=== PATIENT | male | born 1965 | race African-American/Black ===

== ENCOUNTER 2022-02-09 21:12 | Inpatient (IN) | payer MEDICAID ==
[~2022-02-09] VITALS: Ht 182.9 cm; Wt 100.2 kg
[~2022-02-09 21:12] MED LIST: NOCURR
[2022-02-09] MEDS ORDERED: NORT10 PO (21:28)
[2022-02-09] MEDS ORDERED: PREG75 PO (21:28)
[2022-02-09 22:07] LABS: BASOPHILS % (AUTO) 0.4 % (0.0-2.0); EOSINOPHILS % (AUTO) 1.6 % (1.0-6.0); HEMATOCRIT 35.2 % (41-53); HEMOGLOBIN 12.5 g/dL (13.5-17.5); LYMPHOCYTES # (AUTO) 1.6 K/uL (1.0-4.8); MEAN CORPUSCULAR HEMOGLOBIN 28.6 pg (26.0-34.0); MEAN CORPUSCULAR HGB CONC 35.4 G/dL (31.0-37.0); MEAN CORPUSCULAR VOLUME 81 fL (80-100); MONOCYTES # (AUTO) 0.7 K/uL (0.1-1.0); NEUTROPHILS # (AUTO) 4.9 K/uL (1.8-7.7); PLATELET COUNT (AUTO) 303 K/uL (150-450); RED BLOOD CELL COUNT(AUTO) 4.35 MIL/uL (4.50-5.90); RED CELL DISTRIBUTION WIDTH 14.1 % (11.5-14.5)
[2022-02-09 22:24] LABS: CALCIUM, TOTAL 8.6 mg/dL (8.8-10.5); CARBON DIOXIDE 25 mmol/L (22-29); CHLORIDE 103 mmol/L (98-107); CREATININE 1.26 mg/dL (0.60-1.30); GLOMERULAR FILTR. RATE CALC > 60 mL/min (>60); GLUCOSE,RANDOM 141 mg/dL (70-110); UREA NITROGEN, BLOOD 10 mg/dL (7-18)
[2022-02-09 22:38] LABS: ALANINE AMINOTRANSFERASE 50 U/L (12-78); ALKALINE PHOSPHATASE 73 U/L (46-116); ASPARTATE AMINOTRANSFERASE 31 U/L (15-37); BILIRUBIN,TOTAL 0.6 mg/dL (0.1-1.0); TOTAL PROTEIN, SERUM 7.4 g/dL (6.4-8.2)
[2022-02-09 23:15] LABS: APPEARANCE,URINE CLEAR (CLEAR); BILIRUBIN,URINE NEGATIVE (NEGATIVE); GLUCOSE, URINE (UA) NEGATIVE (NEGATIVE); KETONES,URINE NEGATIVE (NEGATIVE); LEUKOCYTE ESTERASE ,URINE NEGATIVE (NEGATIVE); NITRATE,URINE NEGATIVE (NEGATIVE); OCCULT BLOOD,URINE NEGATIVE (NEGATIVE); PH,URINE 6.5 (5.0-8.0); PROTEIN,URINE NEGATIVE (NEGATIVE); SPECIFIC GRAVITIY, URINE 1.009 (1.003-1.030); UROBILINOGEN,URINE <=1.0 mg/dL (<=1.0)
[2022-02-09 23:19] LABS: ANION GAP 15 mmol/L (8-16); CREATINE KINASE, TOTAL ONLY 642 U/L (39-308); PHOSPHORUS 2.9 mg/dL (2.5-4.9); POTASSIUM 3.3 mmol/L (3.5-5.1); SODIUM SERUM 143 mmol/L (136-145)
[2022-02-09 23:24] LABS: AMPHET/METH SCREEN,URINE NEGATIVE (NEGATIVE); BARBITURATE SCREEN, URINE NEGATIVE (NEGATIVE); BENZODIAZEPINES SCREEN,URINE NEGATIVE (NEGATIVE); CANNABINOID SCREEN,URINE POSITIVE (NEGATIVE); COCAINE SCREEN,URINE NEGATIVE (NEGATIVE); METHADONE SCREEN, URINE NEGATIVE (NEGATIVE); OPIATE SCREEN,URINE NEGATIVE (NEGATIVE)
[2022-02-09 23:25] LABS: PHENCYCLIDINE SCREEN,URINE NEGATIVE (NEGATIVE)
[2022-02-09 23:37] LABS: COVID AG,FIA SOURCE NASAL SWAB
[2022-02-09] MEDS ORDERED: ACETAMINOPHEN 325 MG TABLET PO PRN (23:45)
[2022-02-09] MEDS ORDERED: ONDANSETRON HCL 4 MG/2 ML VIAL IVP PRN (23:45)
[2022-02-10] VITALS (7 sets, daily range): BP systolic 137–165; BP diastolic 71–114
[2022-02-10] MEDS: HEPARIN SODIUM,PORCINE 5,000 UNITS/ML VIAL SQ SCH ×3 (00:19→16:16)
[2022-02-10] MEDS: POTASSIUM CHL 10 MEQ/WATER 50 ML IV SCH ×2 (01:46→03:17)
[2022-02-10] MEDS ORDERED: LORazepam 0.5 MG TABLET PO PRN (07:00)
[2022-02-10] MEDS ORDERED: GADOTERATE MEGLUMINE 10 MMOL/20 ML VIAL IVP ONE (08:07)
[2022-02-10] MEDS: DOCUSATE SODIUM 100 MG CAPSULE PO SCH ×2 (09:02→20:36)
[2022-02-11 00:01] VITALS: BP 140/83
[2022-02-11] MEDS: HEPARIN SODIUM,PORCINE 5,000 UNITS/ML VIAL SQ SCH ×4 (00:04→23:53)
[2022-02-11] MEDS: PREGABALIN 75 MG CAPSULE PO SCH ×4 (00:05→21:16)
[2022-02-11] MEDS: NORTRIPTYLINE HCL 25 MG CAPSULE PO SCH ×2 (00:05→21:16)
[2022-02-11 04:18] VITALS: BP 129/77
[2022-02-11 07:30] VITALS: BP 154/104
[2022-02-11 08:07] LABS: ANION GAP 9 mmol/L (8-16); CALCIUM, TOTAL 8.4 mg/dL (8.8-10.5); CARBON DIOXIDE 25 mmol/L (22-29); CHLORIDE 105 mmol/L (98-107); CREATININE 1.15 mg/dL (0.60-1.30); GLOMERULAR FILTR. RATE CALC > 60 mL/min (>60); GLUCOSE,RANDOM 95 mg/dL (70-110); SODIUM SERUM 139 mmol/L (136-145); UREA NITROGEN, BLOOD 12 mg/dL (7-18)
[2022-02-11] MEDS: DOCUSATE SODIUM 100 MG CAPSULE PO SCH ×2 (09:00→21:00)
[2022-02-11 12:00] VITALS: BP 128/90
[2022-02-11] MEDS ORDERED: LIDOCAINE 1% 10 ML VIAL ID ONE (12:15)
[2022-02-11 15:36] VITALS: BP 134/94
[2022-02-11 20:06] VITALS: BP 120/78
[2022-02-11] MEDS ORDERED: GADOTERATE MEGLUMINE 10 MMOL/20 ML VIAL IVP ONE (21:23)
[2022-02-12] VITALS (7 sets, daily range): BP systolic 114–132; BP diastolic 72–97
[2022-02-12 06:52] LABS: CHOL/HDL RATIO 5.9 (4.2-7.3)
[2022-02-12] MEDS: HEPARIN SODIUM,PORCINE 5,000 UNITS/ML VIAL SQ SCH ×3 (08:00→23:54)
[2022-02-12] MEDS: DOCUSATE SODIUM 100 MG CAPSULE PO SCH ×2 (08:29→21:00)
[2022-02-12] MEDS: ATORVASTATIN CALCIUM 20 MG TABLET PO SCH (08:29)
[2022-02-12] MEDS: PREGABALIN 75 MG CAPSULE PO SCH ×3 (08:29→21:00)
[2022-02-12 16:34] LABS: GLUCOSE, CSF 54 mg/dL (50-80); TOTAL PROTEIN, CSF 48 mg/dL (15-45)
[2022-02-12 18:25] LABS: APPEARANCE,CSF CLEAR (CLEAR); APPEARANCE2,CSF CLEAR (CLEAR); COLOR,CSF COLORLESS (COLORLESS); COLOR2,CSF COLORLESS (COLORLESS); CSF 2ND TUBE NUMBER 4; CSF TOTAL VOLUME 10.5 mL; CSF TUBE NUMBER 1; LYMPHOCYTES1,CSF 100 %; MONOCYTES1,CSF 0 %; NEUTROPHILS1,CSF 0 %
[2022-02-12 18:26] LABS: LYMPHOCYTES2,CSF 100 %; MONOCYTES2,CSF 0 %; NEUTROPHILS2,CSF 0 %; OTHER CELLS,CSF 2ND 0
[2022-02-12] MEDS: NORTRIPTYLINE HCL 25 MG CAPSULE PO SCH (21:00)
[2022-02-12] MEDS ORDERED: CLOTRIMAZOLE 1% 15 GM CREAM TP PRN (23:30)
[2022-02-12] MEDS ORDERED: DiphenhydrAMINE HCL 25 MG CAPSULE PO ONE (23:30)
[2022-02-13 04:25] VITALS: BP 113/83
[2022-02-13 07:41] VITALS: BP 119/75
[2022-02-13] MEDS: HEPARIN SODIUM,PORCINE 5,000 UNITS/ML VIAL SQ SCH ×2 (08:26→16:15)
[2022-02-13] MEDS: PREGABALIN 75 MG CAPSULE PO SCH ×2 (08:26→16:15)
[2022-02-13] MEDS: ATORVASTATIN CALCIUM 20 MG TABLET PO SCH (08:30)
[2022-02-13] MEDS: DOCUSATE SODIUM 100 MG CAPSULE PO SCH (09:00)
[2022-02-13 11:27] VITALS: BP 119/82
[2022-02-13] MEDS ORDERED: GLY IV SCH (12:00)
[2022-02-13] MEDS ORDERED: IMMUNE GLOBUL IV SCH (12:00)
[2022-02-13] MEDS ORDERED: IGA AVG IV SCH (12:00)
[2022-02-13] MEDS ORDERED: CONTAINER EMPTY IV SCH (12:00)
[2022-02-13 14:27] VITALS: BP 131/92
[2022-02-16 13:07] LABS: BETA CSF 13.1 % (7.3-17.9)
[2022-02-17 10:10] LABS: GM1 IGG AUTOANTIBODIES < 20 % (0-30)
== END 2022-02-13 19:23 | disposition left against medical advice (07) | DRG 948 ==
LOC: EMS 21:14 → 5S 23:30
PROVIDERS: ADMIT Internal Medicine; ATTEND Internal Medicine
PROC: 009U3ZX Drainage of Spinal Canal, Percutaneous Approach, Diagnostic (ICD-10-PCS; principal; 2022-02-12)
DX: R53.1 Weakness (principal); G93.40 Encephalopathy, unspecified; M62.82 Rhabdomyolysis; R41.4 Neurologic neglect syndrome; G62.9 Polyneuropathy, unspecified; E87.6 Hypokalemia; Z20.822 Contact with and (suspected) exposure to COVID-19
CPT/HCPCS: 70450; 70553; 72125; 72156; 72158; 80048; 80053; 80061; 81003; 82140; 82550; 82945; 83036; 83520; 83735; 84100; 84157; 84166; 84484; 85025; 87045; 87075; 87205; 89051; 92610; 93005; 97110; 97112; 97162; 97167; 97530; 97535; 99285; G0378; G0480; J1459; J1644; J3480; J3490